=== PATIENT | female | born 1995 | race Caucasian/White ===

== ENCOUNTER 2019-06-30 13:28 | Emergency (ER) | payer OTHER ==
[~2019-06-30] VITALS: Ht 162.6 cm; Wt 55.0 kg
[2019-06-30 14:20] VITALS: BP 104/64
[2019-06-30] MEDS ORDERED: SODIUM CHLORIDE 0.9% 1,000 ML IV ONE (14:28)
[2019-06-30 14:49] LABS: BASOPHILS % 0.9 % (0.0-2.0); HEMATOCRIT. 40.7 % (36.0-48.0); HEMOGLOBIN. 13.5 g/dL (12.0-16.0); LYMPHOCYTES % 16.4 % (20.0-50.0); MEAN CORPUSCULAR HEMOGLOBIN 30.2 pg (28.0-32.0); MEAN CORPUSCULAR VOLUME 90.9 fL (81.0-99.0); MEAN PLATELET VOLUME 7.7 fl (7.4-10.4); MONOCYTES % 6.8 % (2.0-8.0); NEUTROPHILS % 74.9 % (40.0-76.0); PLATELET 197 x1000/uL (130-400); RED BLOOD CELL COUNT 4.48 mill/uL (4.2-5.4); RED CELL DISTRIBUTION WIDTH 13.1 % (11.6-14.6)
[2019-06-30 14:55] LABS: CHLORIDE 106 mEq/L (98-107)
== END 2019-06-30 15:28 | disposition home or self-care (01) ==
LOC: ER 14:42
DX: R55 Syncope and collapse (principal); R42 Dizziness and giddiness; R53.1 Weakness
CPT/HCPCS: 36415; 80053; 85025; 93005; 99284; J7030